=== PATIENT | male | born 1940 | race Caucasian/White ===

== ENCOUNTER 2024-01-29 05:59 | Inpatient (IN) | payer MEDICARE, BC, SELFPAY ==
[2024-01-29] VITALS (26 sets, daily range): BP systolic 82–123; BP diastolic 52–82; BMI 24.5; BMI 26.3
[2024-01-29] MEDS: TYLENOL 1000 MG PO (04:35)
[2024-01-29] MEDS: NSS 2100 ML IV (04:36)
[2024-01-29 04:37] LABS: % Basophils 0.4 % (0-2); % Eosinophils 0.9 % (0-6); % Immature Granulocytes 0.7 % (0-0.5); % Lymphocytes 5.9 % (20.5-51.1); % Monocytes 3.1 % (1.7-9.3); Absolute Lymphocytes 0.3 10^3/uL (1.2-3.4); Absolute Monocytes 0.1 10^3/uL (0.1-0.6); Hemoglobin 9.9 g/dL (13.0-18.0); Mean Corp Hgb Conc. 35.4 g/dL (33.0-37.0); Mean Corpuscular Hgb 33.7 pg (27.0-31.0); Mean Corpuscular Volume 95.2 fL (80.0-94.0); Mean Platelet Volume 8.9 fL (7.4-10.4); Nucleated Red Blood Cells % 0 % (-); Platelet Count 101 10^3/uL (130-400); Red Blood Cell Count 2.94 10^6/uL (4.70-6.10); Red Cell Dist. Width 13.2 % (11.5-14.5); White Blood Cell Count 4.5 10^3/uL (4.8-10.8)
[2024-01-29 04:41] LABS: COVID-19 Antigen Negative (Negative)
--- NOTE | 2024-01-29 04:45 | ED.GENMED ---
History of Present Illness
<HARMONY Galeana - Last Filed: 01/29/24 05:04>
General
Chief Complaint: Fever
Source: patient
Time Seen by Provider: 01/29/24 04:09
History of Present Illness
History of Present Illness:
Patient is an 83 y/o male with PMHx prostate CA s/p XRT resulting in hemorrhagic cystits s/p hyperbaric oxygen therapy and ilioconduit presenting with fever, malaise, and dark urine x3 days. He states that on Sunday (01/25) he began to feel overall
weakness. He states his also told him his urine was dark and smelled. He states he began to develop a fever which has persisted over the past 3 days. He states his temperature last night was 102.2. He denies any cough, SOB, CP, nausea,
abdominal pain. He states he is having some back pain but states it is low and in the muscles.
Past History
<HARMONY Galeana - Last Filed: 01/29/24 05:04>
Past History
ED Past Medical History: Cancer (prostate)
ED Past Surgical History: Orthopedic and Urological
Social History
Tobacco: Former smoker
Alcohol: None
Drug: None
Personal:
Living: with family
Employment: Retired
Family History
Family History: Other (Noncontributory)
Phy Exam
<HARMONY Galeana - Last Filed: 01/29/24 05:04>
Physical Exam
Physical Exam:
GENERAL: Alert , in no apparent distress
EYE: pupils equal and reactive
Throat: Airway intact, no exudates
NECK: Supple, no significant adenopathy.
CARDIAC: Tachycardic. Regular rhythm.
LUNGS: Clear breath sounds bilaterally, no acute respiratory distress, no wheezes/rales/rhonchi
ABDOMEN: Soft, nondistended, nontender, no cvat. Indwelling catheter in place.
NEUROLOGICAL: Alert and oriented, no focal neuro deficits
SKIN: Warm and diaphoretic.
MUSCULOSKELETAL: No edema, well perfused.
PSYCH: Normal and appropriate interaction.
Course
<Gerardo Mueller [facility] - Last Filed: 01/29/24 05:04>
Orders/Labs/Results
Orders:
Orders
01/29/24 04:11
Electrocardiogram (*1) Urgent
Reason for Study: Other
Other Reason for Exam: Possible Sepsis
Cardiac Monitoring- Treatment ONCE
IV Insert/Care/Rem.- Treatment PRN
Urinalysis Reflex To Culture Urgent
Date Specimen was Collected: 01/29/24
Time Specimen was Collected: 04:12
O2 Therapy [RESP] Urgent
Titrate/Wean O2 to maintain O2 sat greater than (%): 93
Special Instructions: TO MAINTAIN CONTINUOUS O2 SATS > OR = 93%
Pulse Ox/cont/shift [RESP] Urgent
Quantity: 1
Special Instructions: CONTINUOUS
01/29/24 04:12
EKG- Treatment ONCE
01/29/24 04:17
Complete Blood Count/With Diff Urgent
Comprehensive Metabolic Panel Urgent
Lactic Acid Q4H
Comment: ON ICE, CANCEL 2ND ORDER IF FIRST LACTIC ACID LEVEL <2
01/29/24 04:19
Blood Culture Urgent
VEL Source: Blood/Venous
Specimen Description:
01/29/24 04:24
COVID-19 Antigen Urgent
Source: Nasal Swab
0.9% Sodium Chloride 1000 ml [Nss] 2,100 ml IV NOW STA
Acetaminophen [Tylenol] 1,000 mg PO NOW STA
01/29/24 05:10
Piperacillin/Tazo 4.5 Gram [Zosyn] 4.5 gram in 100 ml IV NOW
01/29/24 08:15
Lactic Acid Q4H
Comment: ON ICE, CANCEL 2ND ORDER IF FIRST LACTIC ACID LEVEL <2
Abnormal Lab Results
01/29/24
04:17
WBC 4.5 L 10^3/uL
(4.8-10.8)
RBC 2.94 L 10^6/uL
(4.70-6.10)
Hgb 9.9 L g/dL
(13.0-18.0)
Hct 28.0 L %
(39.0-52.0)
MCV 95.2 H fL
(80.0-94.0)
MCH 33.7 H pg
(27.0-31.0)
Plt Count 101 L 10^3/uL
(130-400)
Absolute Lymphs (auto) 0.3 L 10^3/uL
(1.2-3.4)
Immature Gran % 0.7 H %
(0-0.5)
Neutrophils % 89.0 H %
(42.2-75.2)
Lymphocytes % 5.9 L %
(20.5-51.1)
Sodium 134 L mmol/L
(135-145)
Potassium 3.4 L mmol/L
(3.5-5.1)
Carbon Dioxide 18 L mmol/L
(22-30)
BUN 26 H mg/dl
(9-20)
Glucose 147 H mg/dl
(70-99)
Lactic Acid 5.1 H* mmol/L
(0.7-2.0)
Total Bilirubin 1.4 H mg/dl
(0.2-1.3)
01/29/24 04:17
01/29/24 04:17
Vital Signs
Initial and Last Documented VS:
Initial Vital Signs
Temp Pulse Resp BP Pulse Ox
103 F H 113 17 102/61 94
08/20/24 04:13 01/29/24 04:13 01/29/24 04:13 01/29/24 04:13 01/29/24 04:13
Last Documented Vital Signs
Temp Pulse Resp BP Pulse Ox
103 F H 113 17 102/61 94
01/29/24 04:13 01/29/24 04:13 01/29/24 04:13 01/29/24 04:13 01/29/24 04:13
<Melina Sheriff, DO - Last Filed: 01/29/24 05:41>
Orders/Labs/Results
Orders:
Orders
01/29/24 04:11
Electrocardiogram (*1) Urgent
Reason for Study: Other
Other Reason for Exam: Possible Sepsis
Cardiac Monitoring- Treatment ONCE
IV Insert/Care/Rem.- Treatment PRN
Urinalysis Reflex To Culture Urgent
Date Specimen was Collected: 01/29/24
Time Specimen was Collected: 04:12
O2 Therapy [RESP] Urgent
Titrate/Wean O2 to maintain O2 sat greater than (%): 93
Special Instructions: TO MAINTAIN CONTINUOUS O2 SATS > OR = 93%
Pulse Ox/cont/shift [RESP] Urgent
Quantity: 1
Special Instructions: CONTINUOUS
01/29/24 04:12
EKG- Treatment ONCE
01/29/24 04:17
Complete Blood Count/With Diff Urgent
Comprehensive Metabolic Panel Urgent
Lactic Acid Q4H
Comment: ON ICE, CANCEL 2ND ORDER IF FIRST LACTIC ACID LEVEL <2
01/29/24 04:19
Blood Culture Urgent
VEL Source: Blood/Venous
Specimen Description:
01/29/24 04:24
COVID-19 Antigen Urgent
Source: Nasal Swab
0.9% Sodium Chloride 1000 ml [Nss] 2,100 ml IV NOW STA
Acetaminophen [Tylenol] 1,000 mg PO NOW STA
01/29/24 05:10
Piperacillin/Tazo 4.5 Gram [Zosyn] 4.5 gram in 100 ml IV NOW
01/29/24 08:15
Lactic Acid Q4H
Comment: ON ICE, CANCEL 2ND ORDER IF FIRST LACTIC ACID LEVEL <2
Abnormal Lab Results
01/29/24
04:17
WBC 4.5 L 10^3/uL
(4.8-10.8)
RBC 2.94 L 10^6/uL
(4.70-6.10)
Hgb 9.9 L g/dL
(13.0-18.0)
Hct 28.0 L %
(39.0-52.0)
MCV 95.2 H fL
(80.0-94.0)
MCH 33.7 H pg
(27.0-31.0)
Plt Count 101 L 10^3/uL
(130-400)
Absolute Lymphs (auto) 0.3 L 10^3/uL
(1.2-3.4)
Immature Gran % 0.7 H %
(0-0.5)
Neutrophils % 89.0 H %
(42.2-75.2)
Lymphocytes % 5.9 L %
(20.5-51.1)
Sodium 134 L mmol/L
(135-145)
Potassium 3.4 L mmol/L
(3.5-5.1)
Carbon Dioxide 18 L mmol/L
(22-30)
BUN 26 H mg/dl
(9-20)
Glucose 147 H mg/dl
(70-99)
Lactic Acid 5.1 H* mmol/L
(0.7-2.0)
Total Bilirubin 1.4 H mg/dl
(0.2-1.3)
01/29/24 04:17
01/29/24 04:17
Vital Signs
Initial and Last Documented VS:
Initial Vital Signs
Temp Pulse Resp BP Pulse Ox
103 F H 113 17 102/61 94
01/29/24 04:13 01/29/24 04:13 01/29/24 04:13 01/29/24 04:13 01/29/24 04:13
Last Documented Vital Signs
Temp Pulse Resp BP Pulse Ox
103 F H 113 17 102/61 94
01/29/24 04:13 01/29/24 04:13 01/29/24 04:13 01/29/24 04:13 01/29/24 04:13
<HARMONY Galeana - Last Filed: 01/29/24 05:04>
MDM/Problems Addressed
Differential Diagnosis Includes:
Differential diagnosis includes but is not limited to UTI, pyelonephritis, covid, flu
<HARMONY Galeana - Last Filed: 01/29/24 05:04>
*Pulse Oximetry
Patient hypoxic: no
*EKG
Interpreted by ED Provider?: Yes
EKG Intrepretation Date: 01/29/24
Interpretation: abnormal
Comparison EKG: changes noted (tachycardia, nonspecific ST changes noted )
Heart Rate: 107
Rate: tachycardiac
Rhythm: sinus tachycardia
Eugene: normal axis
Interval: normal interval
QRS Pattern: normal QRS
Ischemia: non-specific ST changes
*Help Desk Team Leader Interpretation
Rate: Help Desk Team Leader- N/A
*Critical Care Note
Total Time (30-74mins, 75-104mins- exclusive of procedures): Not Applicable
ED Attending Note
<HARMONY Galeana - Last Filed: 01/29/24 05:04>
-
Portions of this chart may have been created with voice recognition software.� Occasional wrong word or��sound alike� substitutions may have occurred due to the inherent limitations of voice recognition software.
<Melina Sheriff, DO - Last Filed: 01/29/24 05:41>
ED Attending Note
Patient seen and examined by attending physician: Yes
I performed the substantive portion of visit, reviewed & personally made and approve the management plan that is documented in note by myself or DANNY.: Yes
ED Attending Note:
This is an 83-year-old gentleman who resides at home. 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 He has history of sporadic UTIs but none recently. He presents to the
ED via EMS with complaints of high fever, generalized malaise that began this evening. He is concerned for UTI. He has not had a cough nor congestion, no abdominal pain. He does admit to mild low backache but no flank pain.
He has not taken anything for symptoms at home. No close contacts with similar symptoms.
Patient arrives via EMS with oral temperature 103 �F.
He is bright and alert, moderately hard of hearing but pleasant, easily communicative, mildly ill in appearance. Blood pressure somewhat soft 104 systolic.
HEENT: Oral mucosa is moist.
Neck is supple, nontender, no meningismus.
Heart is regular rhythm, mildly tachycardic. No murmur.
Lungs are clear to auscultation, respirations are easy nonlabored. No cough appreciated.
Abdomen is soft without appreciable tenderness. Ileal conduit right lower quadrant draining dark iraj urine with moderate sediment. No appreciable CVA tenderness.
Extremities without clubbing or cyanosis nor edema.
Skin is hot to touch, moderately pale. No rash.
No focal neurodeficits. Awake and alert, oriented x 3. Moderately hard of hearing.
Acute febrile illness, concern for SIRS/sepsis. Concern for UTI. Less likely pneumonia, COVID.
Will check labs, urinalysis, blood culture, urine culture, lactic acid. COVID antigen.
Will initiate IV fluid bolus 30 mL/kg. Will give Tylenol for fever.
Due to advanced age, SIRS, chronic debility patient is at significant risk for bacteremia, rapid deterioration thus will require acute hospitalization.
Discharge Plan
Departure
Patient Disposition: Admit
Date of Disposition: 01/29/24
Time of Disposition: 05:41
Admit to: IMU
Admit to doctor: Fernando
Presentation/result/management discussed w/ accepting MD/DO: Hospitalist
Condition: Serious
Discharge Problem:
Sepsis
Prescriptions:
No Action
Orgovyx 120 mg Tablet
120 mg PO DAILY
Referrals:
PRIVATE,PHYSICIAN [Family Provider] -
Interventions
Interventions:
*Risk Screen - Suicide Last Done: 01/29/24 04:13
*General Assessment Last Done: 01/29/24 04:13
*Neglect/Abuse Screening Last Done: 01/29/24 04:13
*ED COVID-19 Vaccine History Last Done: 01/29/24 04:13
Discharge Date and Time
Print Language: LEBANESE
[2024-01-29 05:01] LABS: ALT (SGPT) 15 U/L (0-50); AST (SGOT) 22 U/L (17-59); Albumin 3.7 g/dl (3.5-5.0); Alkaline Phosphatase 90 U/L (38-126); Blood Urea Nitrogen 26 mg/dl (9-20); Calcium 9.4 mg/dl (8.4-10.2); Carbon Dioxide 18 mmol/L (22-30); Chloride 103 mmol/L (98-107); Estimated Creatinine Clearance 47 ml/min; Glucose 147 mg/dl (70-99); Potassium 3.4 mmol/L (3.5-5.1); Sodium 134 mmol/L (135-145); Total Bilirubin 1.4 mg/dl (0.2-1.3); Total Protein 6.8 g/dl (6.3-8.2); eGFR > 60.00
[2024-01-29 05:04] LABS: Lactic Acid 5.1 mmol/L (0.7-2.0)
[2024-01-29] MEDS: ZOSYN 100 IV (05:41)
--- NOTE | 2024-01-29 05:42 | HPS.HSE ---
Family Physician
-
Family Physician: PHYSICIAN PRIVATE
Chief Complaint
-
Fever and dark urine
History of Present Illness
HPI
83M HX prostate CA s/p XRT resulting in hemorrhagic cystits s/p hyperbaric O2 therapy and ilioconduit pw Fever:
- preceded by weakness since 01/24
- new onset of fever , malise and dark urine for last 2-3 days
- associated with chills
- T max at home was 102.2
@ ER
T 103
tachycardic,
Mild hypotension
ROS
denies any cough, SOB, CP, nausea, abdominal pain. Fever
Medical History
Past Medical History
Past Medical History: Reports Cancer (Prostate s/p XRT resulting in hemorrhagic cystits s/p hyperbaric O2 therapy and ilioconduit)
Past Surgical History: Reports Orthopedic and Urological ( s/p XRT resulting in hemorrhagic cystits s/p hyperbaric O2 therapy and ilioconduit)
Social History
Tobacco: Non-smoker
Alcohol: None
Drug: None
Family History
Family History: Not pertinent
Allergies / Home Medications
Allergies reflects when Allergies were last updated in [facility].
Home Medications with original date entered in [facility]
Allergy/Medication List:
Allergies
Allergy/AdvReac Type Severity Reaction Status Date / Time
No Known Allergies Allergy Verified 01/29/24 04:22
Home Medications
relugolix 120 mg tablet (Orgovyx) 120 mg PO DAILY 01/29/24
Review of Systems
-
Constitutional: Reports Fever and Chills
EENT: Reports No Symptoms
Respiratory: Reports No Symptoms
Cardiac: Reports No Symptoms
Abdomen/GI: Reports No Symptoms
: Reports See HPI
Musculoskeletal: Reports No Symptoms
Skin: Reports No Symptoms
Neurological: Reports No Symptoms
Endocrine: Reports No Symptoms
Hematologic/Lymphatic: Reports No Symptoms
Psych: Reports No Symptoms
Physical Exam
Vital Signs
Vital Signs
Temp Pulse Resp BP Pulse Ox
103 F H 113 17 102/61 94
01/29/24 04:13 01/29/24 04:13 01/29/24 04:13 01/29/24 04:13 01/29/24 04:13
Physical Exam
General: Well Developed, Well Nourished, No Apparent Distress and Conversant
HEENT: NormoCephalic, Moist mucous membranes and Atraumatic
Respiratory: Clear
Cardiac: S1/S2 and Regular Rhythm; No Murmur or Rub
GI: Soft, Non Tender, Non Distended and Normal Bowel Sounds; No Organomegaly
Rectal: Deferred by Provider
Musculoskeletal: No Clubbing, No Cyanosis and No Edema
Skin: No Rash
Neuro: Nonfocal/grossly intact
Psych: Calm; No Confused
Laboratory Results
-
01/29/24 04:17
01/29/24 04:17
Laboratory Results
Lactic Acid 5.1 mmol/L (0.7-2.0) H* 01/29/24 04:17
Total Bilirubin 1.4 mg/dl (0.2-1.3) H 01/29/24 04:17
AST 22 U/L (17-59) 01/29/24 04:17
ALT 15 U/L (0-50) 01/29/24 04:17
Alkaline Phosphatase 90 U/L (38-126) 01/29/24 04:17
Data Reviewed
-
Lab Data: Labs Reviewed by me
Old Records: Reviewed
Impression/Plan
-
Reviewed VS: T 103 ST 113 BP 102/60
Data
WCC 4.5
Hgb 9.9 - baseline low 12s
Plt 101
Na 134
K 3.4
CO2 18
BUN 26
Cr 1.1
eGFR > 60
TB 1.4
LA 5.1
Pending UA
BCx sent
EKG
SINUS TACHYCARDIA
NONSPECIFIC ST ABNORMALITY
ABNORMAL ECG
WHEN COMPARED WITH ECG OF 24-MAY-2022 15:18,
VENT. RATE HAS INCREASED BY 39 BPM
NO PRIOR hospitalist admission:
ASSESSMENT & PLAN
Severe Sepsis due suspect complicated UTI of ilioconduit
Hx prostate CA s/p XRT complicated by hemorrhagic cystitis s/p hyperbaric O2 Tx a
HX roman ABx sen E Coli POS UCX ( 05/14/22)
- Pending UA
- septic NS bolus 2.1 L then cont. LR IVF @ 100/H
- Agree with Zosyn
- UCX, BCx sent
- Tylenol PRN
- ID consult
Mild thrombocytopenia due to severe sepsis
- Trend CBC
Hx prostate CA s/p XRT complicated by hemorrhagic cystits s/p hyperbaric O2 Tx a
DVT Px: LMWH
Code: Full
IMU
[2024-01-29 05:47] LABS: Urine Albumin 2+ (Neg - Trace); Urine Bilirubin Negative (Negative); Urine Character Clear (Clear); Urine Color Yellow; Urine Glucose Negative (Negative); Urine Ketone Negative (Negative); Urine Leukocyte 2+ (Negative); Urine Nitrite Negative (Negative); Urine Occult Blood 2+ (Negative); Urine Specific Gravity 1.015 (<1.030); Urine Urobilinogen Negative (Neg - 1+)
--- NOTE | 2024-01-29 06:42 | EDRN ---
Patient is sleeping a this time.
--- NOTE | 2024-01-29 07:08 | EDRN ---
the pt was received from previous washateria attendant RN, the pt is resting in stretcher in the lowest position, side rails up x2, call rust within reach, HOB elevated, VS WNL, no s/s of distress, no c/o chest pain, no c/o SOB, the pt was on RA and Sp02 was
91-92%, this RN placed the pt on 3L NC and Sp02 came up to 96%, provider notified, second lactic drawn and sent, washateria attendant RN called report to the receiving BLADDER TRIMMER, will continue to monitor the pt closely
--- NOTE | 2024-01-29 07:11 | EDRN ---
Report to [facility], as well as ICU nurse
[2024-01-29 07:36] LABS: Lactic Acid 0.7 mmol/L (0.7-2.0)
--- NOTE | 2024-01-29 08:07 | EDRN ---
this RN noticed that the pts pressure was lower at 82/56 (66), provider notified, no new orders received, this RN called the receiving ICU nurse Nai MERLOS and gave an update on the pt
--- NOTE | 2024-01-29 09:09 | PTCARENOTE ---
pt admitted from ED to ICU room 3356. Pt transferred from stretcher to bed. Pt AAOx3, denies pain. SR on telemetry heart rate in 60s. pulses palpable, no edema. pt on 2L nasal cannula, sat 98%. lung sounds clear. active bowel sounds. pt reports poor
appetite over the past few days. LR infusing at 100 ml/hr. Urostomy intact, draining yellow urine with sediment. see worklist for full nursing assessment and interventions.
[2024-01-29] MEDS: LR 1000 IV ×2 (09:24→20:06)
--- NOTE | 2024-01-29 10:10 | W.PN.UPDATE ---
Update Note
Progress Note Update
Seen and examined independent of overnight physician. Currently on oxygenation. States feeling better compared to admission. States of some low back pain yesterday. Currently denies any abdominal pain or flank pain.
General: Well Developed, Well Nourished, No Apparent Distress and Conversant
HEENT: NormoCephalic, Moist mucous membranes and Atraumatic
Respiratory: Clear, nasal cannula noted
Cardiac: S1/S2 and Regular Rhythm; No Murmur or Rub
GI: Soft, nontender, nondistended, ostomy with ileal conduit, Guerra catheter with light yellow color urine
Rectal: Deferred by Provider
Musculoskeletal: No Clubbing, No Cyanosis and No Edema
Skin: No Rash
Neuro: Nonfocal/grossly intact
Psych: Calm;
Severe Sepsis due suspect complicated UTI of ilioconduit vs. versus bacteremia.
Lactic acidosis
Hx prostate CA s/p XRT complicated by hemorrhagic cystitis s/p hyperbaric O2 Tx a
-Follow-up on the urine and blood cultures.
- septic NS bolus 2.1 L then cont. LR IVF @ 100/H
- Agree with Zosyn
- UCX, BCx sent
- Tylenol PRN
- Check renal bladder ultrasound. Check chest x-ray. COVID-negative.
- Lactic acid resolved with IV fluids.
- ID consult
Mild thrombocytopenia due to severe sepsis
Anemia normocytic
- Trend CBC. Transfuse as needed for hemoglobin less than 7.
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
-If no source of infection found thank possibly could be tumor fever
-Follows with Veronika Ward oncologist
Acute hypoxic respiratory insufficiency likely secondary atelectasis versus low likelihood of pneumonia
� Check a chest x-ray
Hypokalemia�replete and monitor
DVT prophylaxis SCDs in the setting of thrombocytopenia
Discussed with patient spouse at bedside in detail.
d/w with Rn
[2024-01-29 10:15] LABS: Urine Mucus Few
[2024-01-29 10:16] LABS: Urine Amorphous Seen; Urine Squamous Cell 0-2 /LPF (Few)
[2024-01-29 10:17] LABS: Urine Granular Cast 0-2 /LPF (0)
[2024-01-29 10:18] LABS: Urine Bacteria Many (Negative); Urine Red Blood Cell 0-2 /HPF (0-2)
[2024-01-29 11:11] LABS: Iron 30 ug/dl (49-181)
--- NOTE | 2024-01-29 11:19 | CM ---
CM met with patient in room. Patient confirmed demographics. Patient lived independently with . Patient is active with his PCP. Patient uses [facility] for medication services. Patient is not on service with any home care agencies, but has a
history of VN after is ostomy was placed. He believes it was 'nurse's from [place]'. Patient denies history of SNF.
Pending PT evaluation for further discharge planning efforts.
PLAN: Home vs Home with VN.
[2024-01-29 11:20] LABS: Percent Saturation 13 % (20-50); Total Iron Binding Capacity 225 ug/dl (261-462)
[2024-01-29] MEDS: ZOSYN 50 IV ×3 (11:57→23:43)
[2024-01-29] MEDS: ProAmatine 5 MG PO ×2 (11:58→17:00)
--- NOTE | 2024-01-29 12:30 | WOUNDNOTE ---
ABDIAS RN NOTE: Asked to see patient for urostomy needs. Patient has had an Ileal Conduit since 2020. Patient currently using Coloplast 2 piece connected to straight bag drainage system. Patient states he changes appliance 2 x per week and has no stoma
or peristomal skin issues/ leakage. Offered to order Mac supplies from [facility], patient declined. Patient states he is comfortable using Coloplast and can do on own. Asked patient to have family bring in his supplies to use while here, he
confirmed that he will. Patient states rarely he will have leakage issues, he thinks is from his hernia. He reports that he went to a surgeon at [place] and did not want to do surgery since is a mild hernia. Teaching done with patient regarding a
hernia belt and will put information in patient's discharge instructions if he decides to order one. Will sign off.
[2024-01-29] MEDS: NON-FORMULARY ITEM 120 MG PO (13:14)
[2024-01-29 14:54] LABS: Folate > 20.0 ng/ml (2.76-20); Vitamin B12 187 pg/ml (239-931)
[2024-01-29] MEDS: LOVENOX 40 MG SC (16:59)
[2024-01-29] MEDS: VITAMIN B-12 1000 MCG PO (17:00)
--- NOTE | 2024-01-29 20:00 | PTCARENOTE ---
Received pt. at 1900. Pt. awake, alert, and oriented. Denies pain/discomfort. Afebrile. Heart rhythm sinus. Blood pressure normotensive. Currently on room air. Lungs sound diminished. PO diet, good appetite. Pt. urostomy draining without issue. Skin
as documented. Discussed plan of care with patient. Vital signs stable at this time.
--- NOTE | 2024-01-29 23:50 | PTCARENOTE ---
Pt. assessment unchanged. Currently appears to be sleeping comfortably in bed. Maintenance IV fluids infusing. Urostomy draining without issue. Vital signs stable at this time.
[2024-01-30] VITALS (19 sets, daily range): BP systolic 88–142; BP diastolic 43–78; BMI 27.2
[2024-01-30] MEDS: LR 1000 IV (04:33)
[2024-01-30 05:10] LABS: Hematocrit 23.9 % (39.0-52.0); Hemoglobin 8.5 g/dL (13.0-18.0); Mean Corp Hgb Conc. 35.6 g/dL (33.0-37.0); Mean Corpuscular Hgb 34.1 pg (27.0-31.0); Mean Platelet Volume 9.1 fL (7.4-10.4); Platelet Count 102 10^3/uL (130-400); Red Blood Cell Count 2.49 10^6/uL (4.70-6.10); Red Cell Dist. Width 13.2 % (11.5-14.5); White Blood Cell Count 4.5 10^3/uL (4.8-10.8)
[2024-01-30] MEDS: ZOSYN 50 IV ×4 (05:16→23:48)
[2024-01-30 05:40] LABS: ALT (SGPT) 12 U/L (0-50); AST (SGOT) 23 U/L (17-59); Albumin 2.9 g/dl (3.5-5.0); Alkaline Phosphatase 84 U/L (38-126); Blood Urea Nitrogen 21 mg/dl (9-20); Calcium 8.8 mg/dl (8.4-10.2); Carbon Dioxide 23 mmol/L (22-30); Chloride 108 mmol/L (98-107); Estimated Creatinine Clearance 51 ml/min; Glucose 96 mg/dl (70-99); Potassium 3.5 mmol/L (3.5-5.1); Sodium 138 mmol/L (135-145); Total Bilirubin 0.6 mg/dl (0.2-1.3); Total Protein 5.6 g/dl (6.3-8.2); eGFR > 60.00
[2024-01-30] MEDS: ProAmatine 5 MG PO ×3 (08:19→17:27)
[2024-01-30] MEDS: NON-FORMULARY ITEM 120 MG PO (08:19)
[2024-01-30] MEDS: VITAMIN B-12 1000 MCG PO (08:20)
[2024-01-30 08:42] LABS: Iron 31 ug/dl (49-181); Percent Saturation 16 % (20-50); Total Iron Binding Capacity 193 ug/dl (261-462)
--- NOTE | 2024-01-30 09:39 | PTCARENOTE ---
Updated assessment, vital sign trends ongoing and as documented. Out of bed to chair with minimal assist. Update patient daughter with and patient via phone as per request. Updated plan of cares pending hospitalist team, transition form IMU
status possible. VSS, am labs as noted. IVF and ABX continue. Continue to reinforce plan of cares, safety concerns, mobility concerns and follow up plan of cares in unit.
--- NOTE | 2024-01-30 10:04 | CON.ID ---
Consultation
-
Date/Time Consultation Requested: 01/29/2024 08:25
Date/Time Consultation Performed: 01/30/2024 09:55
Requesting Provider: Dr. King
Performing Provider: Dr. Neal
Reason for Consultation: Severe sepsis; Suspected complicated UTI; Hx ileal conduit
Chief Complaint / Past History
History of Present Illness
Khris Altamirano is an 83-year-old man with a significant past medical history of prostate cancer (Hx XRT and ileal conduit formation) being evaluated at the request of Dr. King in regards to suspected urinary tract infection. History is obtained
from chart review, along with patient interview.
The patient presents to [facility] on 01/28 with complaints of fevers and malaise. He admits to dark urine for the prior 72 hours. Additionally, he began to develop fever over the prior 72 hours, with a Tmax of 102.2 degrees.
Workup in the ER did not reveal leukocytosis, but the patient does have a left shift.
At present, the patient denies any pain. He denies any shortness of breath or cough. He denies any abdominal discomfort. He admits that he has been somewhat ' less than attentative' when it comes to caring for his urostomy. He denies any flank
discomfort. He denies any myalgias or arthralgias. Per his , he looks improved to some degree at the moment.
Past History
Additional Past Medical History:
Prostate cancer (2010 with XRT to the area)
Additional Past Surgical History:
Cystectomy (2020) secondary to ongoing hematuria
Right wrist surgery
Allergy History:
No Known Allergies Allergy (Verified 01/29/24 04:22)
Medications Reviewed: Yes
Current Antibiotics:
Zosyn 3.375 g IV every 6 hours
Social History
Tobacco: Former Smoker
Alcohol: Occasional
Drug: None
Personal:
Living: With Family
Employment: Retired
Family History
Family History: Not Pertinent
Review of Systems
Vital Signs
Temp Pulse Resp BP Pulse Ox
98.4 F 72 15 109/66 95
01/30/24 07:47 01/30/24 09:30 01/30/24 09:30 01/30/24 08:19 01/30/24 09:30
Physical Exam
Physical Exam
Constitutional: No Acute Distress, Comfortable and Non-toxic
Head: Normocephalic
Eyes: Pupils Equal, Pupils Round, No Conjunctival Hemorrhage and Sclera Anicteric
Oral: No Thrush and No Ulcers
Cardiovascular: S1/S2; Negative S3/S4 or Murmur
Pulmonary: Clear; Negative Wheezes, Rales or Rhonchi
Gastrointestinal: Soft, Non Tender, Non Distended and Other
Genito-Urinary: Other (Urostomy in place to Guerra bag; clear urine noted.)
Extremities: Negative Edema, Cyanosis or Erythema
Neurological: Awake, Alert and Oriented
Psychological: Calm
Lab / Diagnostic Study Results
01/30/24 04:47
01/30/24 04:47
Abs Immat Gran (auto) 0.0 10^3/uL (0-0.05) 01/29/24 04:17
Absolute Neuts (auto) 4.0 10^3/uL (1.4-6.5) 01/29/24 04:17
Absolute Lymphs (auto) 0.3 10^3/uL (1.2-3.4) L 01/29/24 04:17
Absolute Monos (auto) 0.1 10^3/uL (0.1-0.6) 01/29/24 04:17
Absolute Basos (auto) 0.0 10^3/uL (0-0.2) 01/29/24 04:17
Immature Gran % 0.7 % (0-0.5) H 01/29/24 04:17
Neutrophils % 89.0 % (42.2-75.2) H 01/29/24 04:17
Lymphocytes % 5.9 % (20.5-51.1) L 01/29/24 04:17
Monocytes % 3.1 % (1.7-9.3) 01/29/24 04:17
Eosinophils % 0.9 % (0-6) 01/29/24 04:17
Basophils % 0.4 % (0-2) 01/29/24 04:17
Lactic Acid Cancelled 01/29/24 20:25
Ur Squamous Epith Cells 0-2 /LPF (Few) 01/29/24 04:17
Microbiology Results
Micro:
01/29/24 04:17 Urine Culture - Preliminary
Urine
01/29/24 04:19 Blood Culture - Preliminary
Blood/Venous No Growth in 24 hours- Final report to follow
Imaging:
01/29/2024 CXR (2 view): There is linear densities within both lower lungs, likely linear atelectasis. There is minimal blunting of the posterior costophrenic angles bilaterally. A compression deformity of the vertebrae near the thoracolumbar
junction with 70% anterior loss in height. Please see full dictation for additional detail.
01/29/2024 Renal ultrasound: Mild right pelvicalyceal dilatation noted. On the left kidney there is moderate pelvicalyceal dilatation, with 2 benign septated cysts arising in the upper pole of the left kidney. Please see full dictation for
additional detail.
Assessment / Plan
Suspected complicated urinary tract infection
Fever
Generalized malaise
History of urostomy
Recommendations:
Continue with empiric Zosyn for the present.
Urine culture is pending; further recommendations as additional data is returned.
Monitor count and temperature curve.
--- NOTE | 2024-01-30 10:47 | W.PN.HOSP.TC ---
Today's Communication/Plan
-
Continue with IV Zosyn, follow-up ID recs
Follow urine and blood cultures
Downgrade to F
Assessment / Plan
Assessment / Plan
#Severe sepsis due to cystitis
#UTI of ilioconduit
#H/O prostate cancer s/p XRT
#H/O hemorrhagic cystitis s/p hyperbaric oxygen
#H/O pansensitive E. coli on last urine culture
-Presented with severe rigors, fever of up to 102 Fahrenheit at home
-Found to have evidence of conduit UTI, positive urinalysis with cultures pending
-Renal ultrasound did not show any signs of obstructive hydronephrosis, 2 simple cysts seen
-Started on IV Zosyn empirically, infectious disease consulted upon admission
-Received sepsis protocol IV fluid boluses, then maintenance IV fluids
Plan
-Continue with IV Zosyn empirically, follow cultures
-Continue with IV maintenance fluids for now, can DC after next bag
-Continue with Tylenol as needed for fevers
-Follow-up ID recommendation
#Mild thrombocytopenia -- reactive due to severe sepsis
#Normocytic anemia
-Platelet count near 100 on arrival, repeat this morning was near the same
-Hemoglobin also did drop slightly though received IV fluid boluses, suspect dilution
-Will continue to monitor daily CBC
-Iron studies pending
DVT prophylaxis: Lovenox
Diet: House
CODE STATUS: Full code
Anticipated Discharge: 24 - 48 hours
Subjective/Interval History
-
Date of Service: January 30, 2024
Seen and examined at the bedside. No acute events overnight. Remains hemodynamically stable and on room air.
He states he feels very well today, no longer has any chills that was the main symptom he was having prior to coming in. Denies any chest pain, shortness of breath, GI issues, dysuria/abdominal pain. Mentions that this is his second UTI since
development of his ostomy for bladder. Initial 1 was successfully treated with oral antibiotics.
Objective Data
-
Labs:
Laboratory Results
01/30/24
04:47
WBC 4.5 L
Hgb 8.5 L
Hct 23.9 L
Plt Count 102 L
Sodium 138
Potassium 3.5
Chloride 108 H
Carbon Dioxide 23
BUN 21 H
Creatinine 1.0
Glucose 96
Calcium 8.8
Total Bilirubin 0.6
AST 23
ALT 12
Alkaline Phosphatase 84
Vital Signs:
Vital Signs
Temp Pulse Resp BP Pulse Ox
98.4 F 65 9 112/73 95
01/30/24 07:47 01/30/24 10:30 01/30/24 10:30 01/30/24 10:13 01/30/24 09:30
I&O
01/29/24 01/30/24 01/31/24
06:59 06:59 06:59
Intake Total 2600 / 2820 760 / 760
Output Total 3025 / 3025
Balance -425 / -205 760 / 760
Review of Systems
-
History Source: Patient
All other systems: Reviewed and negative
Physical Exam
-
General: Well Nourished, No Apparent Distress and Comfortable
HEENT: Normocephalic, Atraumatic, Moist Mucous Membranes and Anicteric
Respiratory: Clear to Auscultation and Non Labored Respirations; Negative Wheezes, Rales or Rhonchi
Cardiac: Regular Rhythm and S1/S2; Negative Murmur, Rub, JVD or Gallop
GI: Soft, Nontender, Nondistended and Normal Bowel Sounds
Genito-urinary: No Costovertebral Tender, Clear Urine and Other (No erythema or purulence near bladder stoma)
Musculoskeletal: No Clubbing, No Cyanosis and No Edema
Skin: Warm and Dry; Negative Rash
Neuro: AO x 3, Nonfocal/Grossly Intact and Central Nerve's Intact; Negative Facial Droop
Psych: Calm
Data Reviewed
-
Labs: Labs Reviewed by me
[2024-01-30] MEDS: KCL 40 MEQ PO (11:33)
[2024-01-30 11:45] LABS: Folate 19.6 ng/ml (2.76-20); Vitamin B12 187 pg/ml (239-931)
[2024-01-30] MEDS: LR IV (14:25)
--- NOTE | 2024-01-30 15:11 | PTCARENOTE ---
No changes in assessment or vital sign trends. IVF dc as per hospitalist team. Continue with mobility protocols. Ambulate one person light assist and supervision. at bedside and updated on plan of transfer. Continue to update 2N team plan of
cares.
--- NOTE | 2024-01-30 15:19 | PTCARENOTE ---
transferred from ICU, AAOx3, makes needs known, pleasant and cooperative, neobladder connected to hernandez bag, that is draining clear yellow urine. VSS. oriented to the unit and new room, at bedside. all needs anticipated.
[2024-01-30] MEDS: LOVENOX 40 MG SC (17:27)
[2024-01-31] MEDS: ZOSYN 50 IV (05:58)
[2024-01-31 06:00] VITALS: BMI 26.5
[2024-01-31 07:40] VITALS: BP 111/70
[2024-01-31] MEDS: ProAmatine 5 MG PO ×2 (09:01→13:26)
[2024-01-31] MEDS: NON-FORMULARY ITEM 120 MG PO (09:02)
[2024-01-31] MEDS: VITAMIN B-12 1000 MCG PO (09:02)
[2024-01-31 10:36] LABS: % Basophils 0.5 % (0-2); % Eosinophils 5.5 % (0-6); % Immature Granulocytes 0.5 % (0-0.5); % Monocytes 9.4 % (1.7-9.3); % Neutrophils 66.1 % (42.2-75.2); Absolute Eosinophils 0.2 10^3/uL (0-0.7); Absolute Lymphocytes 0.7 10^3/uL (1.2-3.4); Absolute Monocytes 0.4 10^3/uL (0.1-0.6); Absolute Neutrophils 2.5 10^3/uL (1.4-6.5); Hematocrit 26.1 % (39.0-52.0); Hemoglobin 8.9 g/dL (13.0-18.0); Mean Corp Hgb Conc. 34.1 g/dL (33.0-37.0); Mean Corpuscular Volume 96.7 fL (80.0-94.0); Mean Platelet Volume 8.6 fL (7.4-10.4); Nucleated Red Blood Cells % 0 % (-); Platelet Count 119 10^3/uL (130-400); Red Cell Dist. Width 13.2 % (11.5-14.5); White Blood Cell Count 3.8 10^3/uL (4.8-10.8)
[2024-01-31 11:03] LABS: Blood Urea Nitrogen 14 mg/dl (9-20); Calcium 9.2 mg/dl (8.4-10.2); Carbon Dioxide 25 mmol/L (22-30); Chloride 106 mmol/L (98-107); Estimated Creatinine Clearance 51 ml/min; Glucose 108 mg/dl (70-99); Potassium 3.4 mmol/L (3.5-5.1); Sodium 142 mmol/L (135-145); eGFR > 60.00
--- NOTE | 2024-01-31 11:20 | PN.CDI ---
CDI
- -
CDI:
Physician Documentation Request
Admit Date: 01/29/24 05:59
Dear Doctor Tae,
Patient has a history of hemorrhagic cystitis.
01/29 progress notes states 'Severe sepsis due to cystitis'
Please clarify which of the following accurately represents the acuity of the cystitis.
____ Acute
Acute on Chronic
Chronic
____ Other
Use of terms such as suspected, likely, concern for, or probable (associated with a specific diagnosis that is being evaluated, monitored, or treated as if it exists) are acceptable and can be coded in the inpatient setting, when documented at the
time of discharge.
Thank you,
Liudmila Tomlin RN, BSN
CDI Specialist
tiger text
Please use your independent medical judgment in providing your response.
--- NOTE | 2024-01-31 11:23 | PN.CDI ---
CDI
- -
CDI:
Physician Documentation Request
Admit Date: 01/29/24 05:59
Dear Doctor Tae,
Patient received 40meq PO of KCL on 01/29.
Potassium results:
Laboratory Tests
01/29/24 01/30/24 01/31/24
04:17 04:47 10:22
Potassium 3.4 L 3.5 3.4 L
Could you please provide a diagnosis that supports the above lab abnormalities and additional evaluation, monitoring and/or treatment rendered:
Hypokalemia
Abnormal lab value clinically insignificant
Other
Use of terms such as suspected, likely, concern for, or probable (associated with a specific diagnosis that is being evaluated, monitored, or treated as if it exists) are acceptable and can be coded in the inpatient setting, when documented at the
time of discharge.
Thank you,
Liudmila Tomlin RN, BSN
CDI Specialist
tiger text
Please use your independent medical judgment in providing your response.
--- NOTE | 2024-01-31 12:27 | W.PN.HOSP.TC ---
Addendum entered and electronically signed by Reyes Strong DO 01/31/24 12:51:
CDI clarification: Hypokalemia with potassium 3.4, nutritional. Replete as needed, promote oral intake
Original Note:
Today's Communication/Plan
-
Transition oral antibiotics
Likely discharge
Assessment / Plan
Assessment / Plan
#Severe sepsis due to cystitis
#UTI of ilioconduit
#H/O prostate cancer s/p XRT
#H/O hemorrhagic cystitis s/p hyperbaric oxygen
#H/O pansensitive E. coli on last urine culture
-Presented with severe rigors, fever of up to 102 Fahrenheit at home
-Found to have evidence of conduit UTI, positive urinalysis with cultures pending
-Renal ultrasound did not show any signs of obstructive hydronephrosis, 2 simple cysts seen
-Received sepsis protocol IV fluid boluses, then maintenance IV fluids
-Remains on IV Zosyn, urine and blood cultures both negative
Plan
-Transition from IV Zosyn to oral antibiotic to complete 7-day course
-Continue with Tylenol as needed for fevers
#Mild thrombocytopenia -- reactive due to severe sepsis
#Normocytic anemia -- degree of LIAN present
#B12 deficiency
-Platelet count near 100 on arrival, repeat this morning was near the same
-Hemoglobin also did drop slightly though received IV fluid boluses, suspect dilution
-B12 levels were low, signs of iron deficiency on iron studies
-Start IM B12 now, oral replacement at discharge
-Start ferrous sulfate 325 mg EOD at discharge
-Labs improving
DVT prophylaxis: Lovenox
Diet: House
CODE STATUS: Full code
Anticipated Discharge: Within 24 hours
Subjective/Interval History
-
Date of Service: January 31, 2024
Patient was seen and examined at the bedside in street clothes. No acute events reported overnight.
As of this morning the patient appears well, at the bedside with him. He denies any complaints. Denies chest pain, shortness of breath, fevers or chills, GI symptoms, hematuria, bleeding or bruising, paresthesias or weakness.
Objective Data
-
Labs:
Laboratory Results
01/31/24
10:22
WBC 3.8 L
Hgb 8.9 L
Hct 26.1 L
Plt Count 119 L
Sodium 142
Potassium 3.4 L
Chloride 106
Carbon Dioxide 25
BUN 14
Creatinine 1.0
Glucose 108 H
Calcium 9.2
Vital Signs:
Vital Signs
Temp Pulse Resp BP Pulse Ox
97.7 F 67 18 111/70 99
01/31/24 07:40 01/31/24 09:01 01/31/24 07:40 01/31/24 09:01 01/31/24 07:40
I&O
01/30/24 01/31/24 02/01/24
06:59 06:59 06:59
Intake Total 2600 / 2820 3190 / 3190
Output Total 3025 / 3025 2450 / 2450
Balance -425 / -205 740 / 740
Review of Systems
-
History Source: Patient
All other systems: Reviewed and negative
Physical Exam
-
General: Well Nourished, No Apparent Distress and Comfortable
HEENT: Normocephalic, Atraumatic and Moist Mucous Membranes
Respiratory: Clear to Auscultation and Non Labored Respirations
Cardiac: Regular Rhythm and S1/S2; Negative Murmur, Rub or Gallop
GI: Soft, Nontender, Nondistended and Normal Bowel Sounds
Genito-urinary: No Costovertebral Tender and Clear Urine
Musculoskeletal: No Clubbing, No Cyanosis and No Edema
Skin: Warm and Dry; Negative Rash
Neuro: AO x 3, Nonfocal/Grossly Intact and Central Nerve's Intact
Hematologic / Lymphatic: No Lymphadenopathy
Data Reviewed
-
Labs: Labs Reviewed by me
--- NOTE | 2024-01-31 12:51 | W.DCSUMMARY ---
Discharge Summary
Discharge Data
Date of Admission: 01/29/24
Date of Discharge: 01/31/24
-
Pending Results: No
Hospital Course
Presented to hospital with fevers, rigors for multiple days. Home temperature reported to be higher than 102 �F. On arrival to the ED had UA demonstrating signs of urinary tract infection. Suspect UTI of his conduit for previous bladder cancer.
Blood and urine cultures were taken, started on broad-spectrum antibiotics with IV Zosyn. Had rapid clinical improvement with resolution of fevers and rigors. Blood and urine cultures ultimately returned negative on final results. Transitioned
from IV Zosyn to oral cefdinir at discharge. Recommended the patient follow-up with PCP after discharge.
Blood pressure was soft over hospital stay despite midodrine 5 mg 3 times daily which was started on admission. Continue midodrine at discharge, patient should follow-up with PCP in office to consider continuing medication.
He also had lab studies demonstrating evidence of B12 deficiency and iron deficiency. Started on iron and B12 supplementation in the hospital. Should continue with ferrous sulfate every other day and 1000 mcg of vitamin B12 daily for 1 month.
Discharge Plan
-
Patient Disposition: Home (Routine Discharge)
Discharge Diagnosis/Procedures: Sepsis
UTI of ilioconduit
Iron deficiency
B12 deficiency
Condition: Good
Diet: No restrictions
Activity: As tolerated
Driving Restrictions: As prior to admission
Bathing Restrictions: OK to Shower
Blood Work: None
Others Tests: None
Specialty Instructions: Weigh Daily- Call MD for wt gain/loss 3 lbs overnight/5 lbs in 1 week
Activity Restrictions/Additional Instructions:
OSTOMY HERNIA BELT INFORMATION
[employer] security support belts- CALL [phone] Fax- [phone] (website) [email or web address]
Follow-up with family doctor within 7 days of being discharged from the hospital
Instructions: Sepsis in adults, Sepsis in adults - Discharge instructions
Referrals:
PRIVATE,PHYSICIAN [Family Provider] -
Additional Discharge Medication Instructions: Take cefdinir 300 mg twice daily for 6 more days after discharge (last day 02/06/2024)
Take ferrous sulfate 325 mg every other day
Take 1 mg vitamin B12 daily for 1 month
Take midodrine 5 mg 3 times daily until you speak with your primary care doctor
Prescriptions:
New
ferrous sulfate [FeroSul] 325 mg (65 mg iron) Tablet
325 mg PO Q OTHER DAY 30 Days Qty: 15 0RF
cefdinir 300 mg Capsule
300 mg PO Q12 6 Days Qty: 12 0RF
cyanocobalamin (vitamin B-12) 1,000 mcg Tablet
1,000 mcg PO DAILY 30 Days Qty: 30 0RF
midodrine 5 mg Tablet
5 mg PO TID@0800,1300,1800 30 Days Qty: 90 0RF
Continued
Orgovyx 120 mg Tablet
120 mg PO DAILY
Discharge Orders:
Discharge Patient (As Directed); Ordered 01/31/24
Ordered By: Reyes Strong
Discharge Date and Time
Print Language: CZECH
--- NOTE | 2024-01-31 13:15 | W.PN.ID1 ---
Date of Service
Date of Service: January 31, 2024
Today's Communication
Transition to cefdinir.
Assessment / Plan
Suspected complicated urinary tract infection
Fever
- resolved
Generalized malaise
History of urostomy
Recommendations:
Culture results showed mixed kavon.
Case discussed with Hospitalist. Agree with transition to cefdinir to complete a 7-day course.
Chief Complaint
-: UTI
Subjective / Review of Systems
Patient seen and examined. Overall feels well. Denies specific complaints at present. No fevers or chills.
Vital Signs / Physical Exam
Vital Signs
Vital Signs
Temp Pulse Resp BP Pulse Ox
97.7 F 67 18 111/70 99
01/31/24 07:40 01/31/24 09:01 01/31/24 07:40 01/31/24 09:01 01/31/24 07:40
Physical Exam
Constitutional: No Acute Distress, Comfortable and Non-toxic
Cardiovascular: S1/S2; Negative S3/S4
Pulmonary: Clear; Negative Wheezes or Rales
Gastrointestinal: Soft and Non Tender
Genito-Urinary: Other (Urostomy in place.)
Neurological: Awake and Alert
Psychological: Calm
Objective Data
Lab Data
Lab Results
01/31/24 10:22
01/31/24 10:22
Estimated Creat Clear 51 ml/min 01/31/24 10:22
Lactic Acid Cancelled 01/29/24 20:25
Total Bilirubin 0.6 mg/dl (0.2-1.3) 01/30/24 04:47
AST 23 U/L (17-59) 01/30/24 04:47
ALT 12 U/L (0-50) 01/30/24 04:47
Alkaline Phosphatase 84 U/L (38-126) 01/30/24 04:47
Most recent labs reviewed.
Micro Results:
01/29/24 04:17 Urine Culture - Final
Urine Mixed kavon
01/29/24 04:19 Blood Culture - Preliminary
Blood/Venous No Growth in 48 hours- Final report to follow
Imaging:
01/29/2024 CXR (2 view): There is linear densities within both lower lungs, likely linear atelectasis. There is minimal blunting of the posterior costophrenic angles bilaterally. A compression deformity of the vertebrae near the thoracolumbar
junction with 70% anterior loss in height. Please see full dictation for additional detail.
01/29/2024 Renal ultrasound: Mild right pelvicalyceal dilatation noted. On the left kidney there is moderate pelvicalyceal dilatation, with 2 benign septated cysts arising in the upper pole of the left kidney. Please see full dictation for
additional detail.
Care Review
Plan reviewed with: Physician (Hospitalist)
[2024-01-31] MEDS: CYANOCOBALAMIN 1000 MCG IM (13:23)
[2024-01-31] MEDS: OMNICEF 300 MG PO (13:24)
[2024-01-31] MEDS: KCL 40 MEQ PO (13:25)
[2024-01-31 13:38] VITALS: BP 112/64
[2024-01-31] MEDS: ZOSYN IV (13:39)
--- NOTE | 2024-01-31 16:14 | CM ---
met with patient and at bedside.patient is stable for dc home with no needs.patient signed imm letter, to transport home.
[2024-02-01 17:05] LABS: Transferrin 138 mg/dL (200-360)
== END 2024-01-31 14:29 | disposition home or self-care (01) | DRG 872 ==
LOC: 2 NORTH 05:59
PROVIDERS: ADMITTING PHYSICIAN Internal Medicine; ATTENDING PHYSICIAN Internal Medicine; CONSULT PHYSICIAN Internal Medicine Infectious Disease; EMERGENCY PHYSICIAN Emergency Medicine
DX: A41.9 Sepsis, unspecified organism (principal); E87.20 Acidosis, unspecified; Z87.891 Personal history of nicotine dependence; R65.20 Severe sepsis without septic shock; Z11.52 Encounter for screening for COVID-19; I95.9 Hypotension, unspecified; E61.1 Iron deficiency; E53.8 Deficiency of other specified B group vitamins; N30.90 Cystitis, unspecified without hematuria
CPT/HCPCS: 71046; 76775; 80048; 80053; 81003; 81015; 82607; 82728; 82746; 83540; 83550; 83605; 84466; 85025; 85027; 87040; 87077; 87086; 87186; 87811; 93005; 96365; 99285

== ENCOUNTER → 2024-09-22 13:59 | Outpatient (REF) | payer MEDICARE, BC, SELFPAY ==
[2024-09-22 14:41] LABS: % Basophils 0.5 % (0-2); % Eosinophils 3.3 % (0-6); % Immature Granulocytes 0.3 % (0-0.5); % Lymphocytes 26.1 % (20.5-51.1); % Monocytes 8.5 % (1.7-9.3); % Neutrophils 61.3 % (42.2-75.2); Absolute Eosinophils 0.2 10^3/uL (0-0.7); Absolute Lymphocytes 1.6 10^3/uL (1.2-3.4); Absolute Monocytes 0.5 10^3/uL (0.1-0.6); Absolute Neutrophils 3.7 10^3/uL (1.4-6.5); Hematocrit 33.9 % (39.0-52.0); Hemoglobin 11.3 g/dL (13.0-18.0); Mean Corp Hgb Conc. 33.3 g/dL (33.0-37.0); Mean Corpuscular Hgb 31.2 pg (27.0-31.0); Mean Corpuscular Volume 93.6 fL (80.0-94.0); Mean Platelet Volume 8.7 fL (7.4-10.4); Nucleated Red Blood Cells % 0 % (-); Platelet Count 177 10^3/uL (130-400); Red Blood Cell Count 3.62 10^6/uL (4.70-6.10); Red Cell Dist. Width 13.9 % (11.5-14.5)
[2024-09-22 15:31] LABS: PSA, Total - Diagnostic < 0.06 ng/ml (0.0-4.0)
[2024-09-22 16:06] LABS: ALT (SGPT) 24 U/L (0-50); AST (SGOT) 32 U/L (17-59); Albumin 4.4 g/dl (3.5-5.0); Alkaline Phosphatase 116 U/L (38-126); Blood Urea Nitrogen 21 mg/dl (9-20); Calcium 9.7 mg/dl (8.4-10.2); Carbon Dioxide 25 mmol/L (22-30); Chloride 106 mmol/L (98-107); Glucose 114 mg/dl (70-99); Potassium 4.7 mmol/L (3.5-5.1); Sodium 143 mmol/L (135-145); Total Bilirubin 0.6 mg/dl (0.2-1.3); Total Protein 7.4 g/dl (6.3-8.2); eGFR > 60.00
[2024-09-22 20:20] LABS: Testosterone, Total 11.2 ng/dl (72-623)
== END ==
LOC: RAD 13:59
PROVIDERS: ATTENDING PHYSICIAN Nurse Practitioner; FAMILY PHYSICIAN Family Medicine; REFERRING PHYSICIAN Radiology Diagnostic Radiology
DX: S05.50XA Penetrating wound with foreign body of unspecified eyeball, initial encounter (principal); C61 Malignant neoplasm of prostate
CPT/HCPCS: 36415; 70030; 80053; 84153; 84403; 85025